=== PATIENT | female | born 1955 | race Caucasian/White ===

== ENCOUNTER 2019-02-12 23:04 | Inpatient (IN) | payer BC ==
[~2019-02-12] VITALS: Ht 172.7 cm; Wt 131.5 kg
--- NOTE | 2019-02-13 01:18 | PHYS DOC ---
Past Medical History Additional Past Medical Histor: UTERINE CA, ARTHRITIS Past Surgical History: Hysterectomy Additional Past Surgical Histo: BLADDER TUCK Alcohol Use: Occasionally Drug Use: None Adult General Chief Complaint Chief Complaint: MECHANICAL FALL HPI HPI Patient is a 63-year-old female who presents after falling onto her left arm. She complains of pain that is an 8 out of 10 in her humerus region. She denies any other injuries. She denies any chest pain or shortness of breath. Patient states that pain is worsened if she tries to move her left arm whatsoever. Review of Systems Review of Systems Constitutional: Denies fever or chills [] Respiratory: Denies cough or shortness of breath [] Cardiovascular: No additional information not addressed in HPI [] Musculoskeletal: Positive left arm pain [] Integument: Denies rash or skin lesions [] All other systems were reviewed and found to be within normal limits, except as documented in this note. Allergies Allergies Allergies Coded Allergies Type Severity Reaction Last Updated Verified No Known Drug Allergies 02/13/19 No Physical Exam Physical Exam Constitutional: Well developed, well nourished, in mild distress. [] HENT: Normocephalic, atraumatic, bilateral external ears normal, oropharynx moist, no oral exudates, nose normal. [] Eyes: PERRLA, EOMI, conjunctiva normal, no discharge. [] Neck: Normal range of motion, no tenderness, supple, no stridor. [] Cardiovascular: Regular rate and rhythm[] Lungs & Thorax: Bilateral breath sounds clear to auscultation [] Abdomen: Bowel sounds normal, soft, no tenderness. [] Skin: Warm, dry, no erythema, no rash. [] Extremities: Examination of left upper arm demonstrates deformity around mid shaft humerus. Unable to test range of motion due to severity of pain. [] Neurologic: Alert and oriented X 3, no focal deficits noted. [] Current Patient Data Vital Signs Vital Signs Date Time Temp Pulse Resp B/P (MAP) Pulse Ox O2 Delivery O2 Flow Rate FiO2 02/12/19 23:50 98.2 81 20 140/78 (98) 98 Room Air 98.2 EKG EKG [] Radiology/Procedures Radiology/Procedures [] Impressions: X-ray of left shoulder and humerus demonstrates a proximal one third shaft fracture with displacement. Course & Med Decision Making Course & Med Decision Making Pertinent Labs and Imaging studies reviewed. (See chart for details) [] Dragon Disclaimer Dragon Disclaimer This electronic medical record was generated, in whole or in part, using a voice recognition dictation system. Departure Departure Impression: Primary Impression: Humerus shaft fracture Disposition: ADMITTED INPATIENT Admitting Physician: Tracey Lunsford Condition: GOOD Problem Qualifiers Primary Impression: Humerus shaft fracture Encounter type: initial encounter Fracture type: closed Fracture morphology : spiral Fracture alignment: displaced Laterality: left Qualified Codes: S42.342A - Displaced spiral fracture of shaft of humerus, left arm, initial encounter for closed fracture XAVIER ROD Jr. DO Feb 13, 2019 01:18
[2019-02-13] MEDS ORDERED: ONDANSETRON PF 4 MG/2 ML VIAL. IV PRN (01:30)
[2019-02-13] MEDS ORDERED: fentaNYL PF VIAL 100 MCG/2 ML VIAL IV ONE (01:30)
[2019-02-13] MEDS ORDERED: ONDANSETRON PF 4 MG/2 ML VIAL. IV ONE (01:30)
[2019-02-13 01:57] LABS: CALCIUM 9.3 mg/dL (8.5-10.1); CREATININE 0.8 mg/dL (0.6-1.0); GFR 72.7; POTASSIUM 3.7 mmol/L (3.5-5.1)
[2019-02-13 02:03] LABS: ALBUMIN 3.8 g/dL (3.4-5.0); TOTAL BILIRUBIN 0.4 mg/dL (0.2-1.0); TOTAL PROTEIN 7.5 g/dL (6.4-8.2)
--- NOTE | 2019-02-13 02:40 | NUR ---
Admission: The patient, JOSELO HAND, 63 y/o, F admitted by JÚNIOR HERNÁNDEZ MD, was given written information regarding hospital policies, unit procedures and contact persons. Patient was transported from ED to room 432 via bed. RN performed a head to toe assessment at that time, VSS, and afebrile, patient rated pain an 8/10. Orders were received and implemented at that time. Valuables were checked and left in the room with the patient. RN will continue to monitor patient closely.
[2019-02-13] MEDS: fentaNYL PF VIAL 100 MCG/2 ML VIAL IV PRN ×6 (02:56→21:33)
[2019-02-13 03:00] VITALS: BP 137/82
[2019-02-13] MEDS: IV NORMAL SALINE 1000ML BAG 1,000 ML IV SCH ×2 (03:37→11:53)
[2019-02-13 03:53] LABS: BASO # 0.1 x10^3/uL (0.0-0.2); BASO % 0 % (0-3); EOS % 0 % (0-3); HEMATOCRIT 41.2 % (36.0-47.0); HEMOGLOBIN 13.4 g/dL (12.0-15.5); LYMPH # 0.9 x10^3/uL (1.0-4.8); LYMPH % 7 % (24-48); MEAN CORPUSCULAR HEMOGLOBIN 29 pg (25-35); MEAN CORPUSCULAR HGB CONC 33 g/dL (31-37); MEAN CORPUSCULAR VOLUME 90 fL (79-100); MONO # 0.4 x10^3/uL (0.0-1.1); MONO % 3 % (0-9); NEUT # 11.9 x10^3uL (1.8-7.7); NEUT % 90 % (31-73); PLATELET COUNT 351 x10^3/uL (140-400); RED BLOOD COUNT 4.59 x10^6/uL (3.50-5.40); RED CELL DISTRIBUTION WIDTH 14.4 % (11.5-14.5); WHITE BLOOD COUNT 13.3 x10^3/uL (4.0-11.0)
[2019-02-13 05:45] LABS: % BANDS 3 % (0-9); % LYMPHS 5 % (24-48); % MONOS 4 % (0-10); % SEGS 88 % (35-66); PLT ESTIMATE ADEQUATE (ADEQUATE)
--- NOTE | 2019-02-13 06:49 | EKG ---
[facility] [address] [place] [address] Test Date: 2019-02-13 Test Time: 02:19:47 Pat Name: JOSELO HAND Department: Room: 432 1 Gender: F Glue Bone [employer]her: : 1955 Requested By: XAVIER ROD Order Number: [id number] Reading MD: Cornel Orta MD Measurements Intervals Lagrange Rate: 79 P: 41 AR: 166 QRS: 43 QRSD: 82 T: 62 QT: 394 QTc: 453 Interpretive Statements SINUS RHYTHM Electronically Signed On 02-17-2019 13:09:57 CDT by Cornel Orta MD
[2019-02-13 07:00] VITALS: BP 113/71
--- NOTE | 2019-02-13 08:32 | RAD ---
EXAM: 3 views left shoulder 2 views left humerus DATE: 02/13/2019 12:11 AM INDICATION: FALL COMPARISON: No Prior FINDINGS: There is a spiral type fracture of the proximal left humeral shaft with associated rotatory component and approximately 1.5 cm proximal migration of the distal principal component, in apex medial angulation. Diffusely decreased bone mineral density. Minimal AC joint degenerative change. IMPRESSION: 1. Spiral type proximal left humeral fracture. Electronically signed by: Temo Pete MD (02/13/2019 8:28 AM) [id number]
--- NOTE | 2019-02-13 08:34 | RAD ---
EXAM: AP View of the chest DATE: 02/13/2019 12:30 AM INDICATION: LEFT HUMERUS PAIN, FALL. PRE-OP COMPARISON: No Prior FINDINGS: Left proximal humeral fracture is partially profiled. Heart is mildly enlarged. Aorta is tortuous. No lobar consolidation. Interstitial prominence bilaterally. No lobar consolidation. Mild biapical pleural/parenchymal scarring/thickening. Mild nodularity with acute margins is seen in the right upper lung measuring 5 mm. No pleural effusion or pneumothorax. IMPRESSION: 1. Proximal left humeral fracture partially profiled. 2. Nodularity in the right upper lung measuring 5 mm, possibly summation artifact should be further assessed with CT. Electronically signed by: Temo Pete MD (02/13/2019 8:31 AM) [id number]
[2019-02-13] MEDS ORDERED: DULO60CA6 PO (09:07)
[2019-02-13] MEDS ORDERED: FURO-69 PO (09:07)
[2019-02-13] MEDS ORDERED: NALT50TA PO (09:08)
[2019-02-13] MEDS ORDERED: CELE200C PO (09:08)
[2019-02-13] MEDS ORDERED: ESZO3TAB28 PO (09:08)
[2019-02-13] MEDS ORDERED: DIET75TA PO (09:08)
[2019-02-13 11:00] VITALS: BP 117/61
[2019-02-13] MEDS ORDERED: DEXTROSE 50% 25 GM / 50ML DISP.SYRIN. IV PRN (11:15)
--- NOTE | 2019-02-13 11:17 | HP ---
ADMIT DATE: 02/13/2019 CHIEF COMPLAINT: Fall with left shoulder pain. HISTORY OF PRESENT ILLNESS: The patient is a pleasant 63-year-old female who tripped over her suitcase. She complains of 8/10 left arm pain. She was brought to the ER for evaluation. Imaging has shown a humerus fracture. She has associated nausea. This has been occurring for several hours. Morphine makes it better. I have discussed the case with the ER physician. We are going to admit the patient and consult Orthopedics. PAST MEDICAL HISTORY: Uterine cancer, arthritis and bladder tuck. ALLERGIES: None. FAMILY HISTORY: Coronary artery disease. SOCIAL HISTORY: She does not drink, smoke or take drugs. She works at [employer] in [place]. MEDICATIONS: Reviewed. She is on Celebrex, Cymbalta, Lunesta and Lasix. REVIEW OF SYSTEMS: GENERAL: No history of weight change, weakness or fevers. SKIN: No bruising, hair changes or rashes. EYES: No blurred, double or loss of vision. NOSE AND THROAT: No history of nosebleeds, hoarseness or sore throat. HEART: No history of palpitations, chest pain or shortness of breath on exertion. LUNGS: Denies cough, hemoptysis, wheezing or shortness of breath. GASTROINTESTINAL: Denies changes in appetite, nausea, vomiting, diarrhea or constipation. GENITOURINARY: No history of frequency, urgency, hesitancy or nocturia. NEUROLOGIC: Denies history of numbness, tingling, tremor or weakness. PSYCHIATRIC: No history of panic, anxiety or depression. ENDOCRINE: No history of heat or cold intolerance, polyuria or polydipsia. EXTREMITIES: Denies muscle weakness, joint pain, pain on walking or stiffness. She complains of arm pain. PHYSICAL EXAMINATION: VITAL SIGNS: Temperature is afebrile, pulse 70, respirations 18 and blood pressure 113/80. GENERAL: She is alert, cooperative, requesting ice. HEART: Normal S1, S2. LUNGS: Clear. ABDOMEN: Soft. EXTREMITIES: No edema. The left arm is swollen and painful to touch. It is in a sling. ENDOCRINE: No thyromegaly. LYMPHATICS: No cervical nodes. HEMATOPOIETIC: No bruising. PSYCHIATRIC: She is depressed. LABORATORY DATA: White count is 13. Electrolytes are normal, other than a slightly bumped anion gap of 15. Glucose is 173. Alkaline phosphatase 133. ASSESSMENT AND PLAN: Fall with left humerus fracture. The patient has been admitted. We are consulting with Orthopedics, p.r.n. morphine, IV fluids, p.r.n. Zofran, full code, DVT prophylaxis, PT and OT. LACHELLE BATEMAN DO DR: SUSAN/tam JOB#: [id number] / [id number]
[2019-02-13] MEDS: INSULIN LISPRO 300 UNITS/3 ML INSULN.PEN. SQ SCH ×2 (11:55→16:28)
--- NOTE | 2019-02-13 12:45 | NUR ---
SS following for discharge planning. SS reviewed pt chart. Pt is from home and is currently on room air. No discharge needs noted at this time. SS will continue to follow for pending discharge needs.
[2019-02-13] MEDS ORDERED: oxyCODONE/APAP 5/325 1 TAB TABLET PO PRN (13:15)
[2019-02-13] MEDS: oxyCODONE/APAP 5/325 1 TAB TABLET PO PRN ×2 (14:22→21:35)
[2019-02-13 15:00] VITALS: BP 135/74
[2019-02-13 19:00] VITALS: BP 131/63
--- NOTE | 2019-02-13 19:32 | PDOC2 ---
CONSULT Date of Consult Date of Consult DATE: 02/13/19 TIME: 19:32 Reason for Consult Reason for Consult: Left humerus fracture Identification/Chief Complaint Chief Complaint Left arm pain Source Source: Chart review, Patient History of Present Illness Reason for Visit: This 63-year-old right-handed woman was staying at [facility] with her family when she tripped. She had immediate arm pain, and some deformity of the arm and was admitted to the hospital. She normally lives in [place] Current Problem List Problem List Problems Medical Problems: (1) Humerus shaft fracture Status: Acute Current Medications Current Medications Current Medications Fentanyl Citrate (Fentanyl 2ml Vial) 50 mcg 1X ONCE IV Last administered on 01:36; Start 02/13/19 at 01:30; Stop 02/13/19 at 01:31; Status DC Ondansetron HCl (Zofran) 4 mg 1X ONCE IV Last administered on 02/13/19 01:35 ; Start 02/13/19 at 01:30; Stop 02/13/19 at 01:31; Status DC Ondansetron HCl (Zofran) 4 mg PRN Q8HRS PRN IV NAUSEA/VOMITING 1ST CHOICE; Start 02/13/19 at 01:30; Stop 02/14/19 at 01:29 Fentanyl Citrate (Fentanyl 2ml Vial) 50 mcg PRN Q1HR PRN IV SEVERE PAIN Last administered on 02/13/19at 19:00; Start 02/13/19 at 01:30; Stop 02/14/19 at 01:29 Sodium Chloride 1,000 ml @ 75 mls/hr [id number] IV Last administered on at 11:53; Start 02/13/19 at 02:00; Stop 02/14/19 at 01:59 Insulin Human Lispro (HumaLOG) 0-5 UNITS TIDWMEALS SQ Last administered on 02/13at 11:55; Start 02/13/19 at 12:00 Dextrose (Dextrose 50%-Water Syringe) 12.5 gm PRN Q15MIN PRN IV SEE COMMENTS; Start 02/13/19 at 11:15 Oxycodone/ Acetaminophen (Percocet 5/325) 1 tab PRN Q4HRS PRN PO MODERATE PAIN ; Start 02/13/19 at 13:15 Oxycodone/ Acetaminophen (Percocet 5/325) 2 tab PRN Q4HRS PRN PO SEVERE PAIN Last administered on 02/13/19at 14:22; Start 02/13/19 at 13:15 Active Scripts Active Reported Diethylpropion Hcl 75 Mg Tablet.er 75 Mg PO DAILY Celebrex (Celecoxib) 200 Mg Capsule 200 Mg PO BID 30 Days Naltrexone Hcl 50 Mg Tablet 50 Mg PO DAILY Lunesta (Eszopiclone) 3 Mg Tablet 3 Mg PO HS PRN Cymbalta (Duloxetine Hcl) 60 Mg Capsule.dr 1 Cap PO DAILY Lasix (Furosemide) 20 Mg Tablet 1 Tab PO DAILY Allergies Allergies: Coded Allergies: No Known Drug Allergies (Unverified , 02/13/19) Physical Exam General: Alert, Cooperative, No acute distress HEENT: Atraumatic Lungs: Normal air movement Heart: Regular rate Abdomen: Soft Extremities: No cyanosis, No edema, Normal pulses, Other (there is tenderness of the proximal humerus on the left as expected, but no obvious deformity. The arm sling and her body are providing support and splinting. She has intact radial ulnar and median nerve sensory and motor function at the fingers. Capillary refill and pulses are normal.) Skin: No breakdown, No significant lesion Neuro: Sensation intact Psych/Mental Status: Mental status NL, Mood NL Vitals VITALS Vital Signs Date Time Temp Pulse Resp B/P (MAP) Pulse Ox O2 Delivery O2 Flow Rate FiO2 02/13/19 19:00 20 96 Room Air 02/13/19 15:00 97.9 90 135/74 (94) 97.9 Labs Labs Laboratory Tests Test 02/13/19 01:30 02/13/19 03:30 02/13/19 11:42 02/13/19 16:26 Sodium Level 139 mmol/L (136-145) Potassium Level 3.7 mmol/L (3.5-5.1) Chloride Level 101 mmol/L (98-107) Carbon Dioxide Level 23 mmol/L (21-32) Anion Gap 15 (6-14) Blood Urea Nitrogen 11 mg/dL (7-20) Creatinine 0.8 mg/dL (0.6-1.0) Estimated GFR (Cockcroft-Gault) 72.7 BUN/Creatinine Ratio 14 (6-20) Glucose Level 173 mg/dL (70-99) Calcium Level 9.3 mg/dL (8.5-10.1) Total Bilirubin 0.4 mg/dL (0.2-1.0) Aspartate Amino Transf (AST/SGOT) 27 U/L (15-37) Alanine Aminotransferase (ALT/SGPT) 33 U/L (14-59) Alkaline Phosphatase 133 U/L (46-116) Total Protein 7.5 g/dL (6.4-8.2) Albumin 3.8 g/dL (3.4-5.0) Albumin/Globulin Ratio 1.0 (1.0-1.7) White Blood Count 13.3 x10^3/uL (4.0-11.0) Red Blood Count 4.59 x10^6/uL (3.50-5.40) Hemoglobin 13.4 g/dL (12.0-15.5) Hematocrit 41.2 % (36.0-47.0) Mean Corpuscular Volume 90 fL (79-100) Mean Corpuscular Hemoglobin 29 pg (25-35) Mean Corpuscular Hemoglobin Concent 33 g/dL (31-37) Red Cell Distribution Width 14.4 % (11.5-14.5) Platelet Count 351 x10^3/uL (140-400) Neutrophils (%) (Auto) 90 % (31-73) Lymphocytes (%) (Auto) 7 % (24-48) Monocytes (%) (Auto) 3 % (0-9) Eosinophils (%) (Auto) 0 % (0-3) Basophils (%) (Auto) 0 % (0-3) Neutrophils # (Auto) 11.9 x10^3uL (1.8-7.7) Lymphocytes # (Auto) 0.9 x10^3/uL (1.0-4.8) Monocytes # (Auto) 0.4 x10^3/uL (0.0-1.1) Eosinophils # (Auto) 0.0 x10^3/uL (0.0-0.7) Basophils # (Auto) 0.1 x10^3/uL (0.0-0.2) Segmented Neutrophils % 88 % (35-66) Band Neutrophils % 3 % (0-9) Lymphocytes % 5 % (24-48) Monocytes % 4 % (0-10) Platelet Estimate Adequate (ADEQUATE) Glucose (Fingerstick) 162 mg/dL (70-99) 126 mg/dL (70-99) Laboratory Tests Test 02/13/19 01:30 02/13/19 03:30 02/13/19 11:42 02/13/19 16:26 Sodium Level 139 mmol/L (136-145) Potassium Level 3.7 mmol/L (3.5-5.1) Chloride Level 101 mmol/L (98-107) Carbon Dioxide Level 23 mmol/L (21-32) Anion Gap 15 (6-14) Blood Urea Nitrogen 11 mg/dL (7-20) Creatinine 0.8 mg/dL (0.6-1.0) Estimated GFR (Cockcroft-Gault) 72.7 BUN/Creatinine Ratio 14 (6-20) Glucose Level 173 mg/dL (70-99) Calcium Level 9.3 mg/dL (8.5-10.1) Total Bilirubin 0.4 mg/dL (0.2-1.0) Aspartate Amino Transf (AST/SGOT) 27 U/L (15-37) Alanine Aminotransferase (ALT/SGPT) 33 U/L (14-59) Alkaline Phosphatase 133 U/L (46-116) Total Protein 7.5 g/dL (6.4-8.2) Albumin 3.8 g/dL (3.4-5.0) Albumin/Globulin Ratio 1.0 (1.0-1.7) White Blood Count 13.3 x10^3/uL (4.0-11.0) Red Blood Count 4.59 x10^6/uL (3.50-5.40) Hemoglobin 13.4 g/dL (12.0-15.5) Hematocrit 41.2 % (36.0-47.0) Mean Corpuscular Volume 90 fL (79-100) Mean Corpuscular Hemoglobin 29 pg (25-35) Mean Corpuscular Hemoglobin Concent 33 g/dL (31-37) Red Cell Distribution Width 14.4 % (11.5-14.5) Platelet Count 351 x10^3/uL (140-400) Neutrophils (%) (Auto) 90 % (31-73) Lymphocytes (%) (Auto) 7 % (24-48) Monocytes (%) (Auto) 3 % (0-9) Eosinophils (%) (Auto) 0 % (0-3) Basophils (%) (Auto) 0 % (0-3) Neutrophils # (Auto) 11.9 x10^3uL (1.8-7.7) Lymphocytes # (Auto) 0.9 x10^3/uL (1.0-4.8) Monocytes # (Auto) 0.4 x10^3/uL (0.0-1.1) Eosinophils # (Auto) 0.0 x10^3/uL (0.0-0.7) Basophils # (Auto) 0.1 x10^3/uL (0.0-0.2) Segmented Neutrophils % 88 % (35-66) Band Neutrophils % 3 % (0-9) Lymphocytes % 5 % (24-48) Monocytes % 4 % (0-10) Platelet Estimate Adequate (ADEQUATE) Glucose (Fingerstick) 162 mg/dL (70-99) 126 mg/dL (70-99) Images Images Report reviewed, images independently reviewed. Spiral fracture of the proximal humeral shaft with moderate translation, and minimal angulation. No intra- articular involvement. [facility] [address] [place] [address] IMAGING REPORT Signed PATIENT: JOSELO HAND ACCOUNT: [id number] : 1955 LOCATION: [address] [place] [address] AGE: 63 SEX: F EXAM STATUS: ADM IN ORD. PHYSICIAN: XAVIER ROD Jr. DO REASON: LEFT HUMERUS PAIN, FALL PROCEDURE: HUMERUS LEFT EXAM: 3 views left shoulder 2 views left humerus DATE: 02/13/2019 12:11 AM INDICATION: FALL COMPARISON: No Prior FINDINGS: There is a spiral type fracture of the proximal left humeral shaft with associated rotatory component and approximately 1.5 cm proximal migration of the distal principal component, in apex medial angulation. Diffusely decreased bone mineral density. Minimal AC joint degenerative change. IMPRESSION: 1. Spiral type proximal left humeral fracture. Electronically signed by: Temo Pete MD (02/13/2019 8:28 AM) [facility] Assessment/Plan Assessment/Plan Closed left isolated spiral fracture of the humeral shaft without neurovascular injury. I recommended nonoperative treatment. Arm sling, ice packs, and a follow -up x-ray in about 2 weeks. She agrees with that plan. She said she will need to follow-up in [place]. We will plan for her discharge tomorrow and I would recommend Percocet for bone pain JAUN RAJAN MD Feb 13, 2019 19:32
[2019-02-13 23:00] VITALS: BP 127/70
[2019-02-14 03:00] VITALS: BP 110/62
[2019-02-14 07:00] VITALS: BP 112/59
[2019-02-14] MEDS: IV NORMAL SALINE 1000ML BAG 1,000 ML IV SCH (07:20)
[2019-02-14] MEDS: INSULIN LISPRO 300 UNITS/3 ML INSULN.PEN. SQ SCH (07:20)
[2019-02-14] MEDS ORDERED: ESOM40CA PO (08:11)
[2019-02-14] MEDS ORDERED: ZOLPIDEM 5 MG TABLET. PO PRN (08:15)
[2019-02-14] MEDS: fentaNYL PF VIAL 100 MCG/2 ML VIAL IV PRN (08:28)
[2019-02-14] MEDS ORDERED: PANTOPRAZOLE 40 MG TABLET.DR. PO SCH (09:00)
[2019-02-14] MEDS ORDERED: CELECOXIB 100 MG CAPSULE. PO SCH (09:00)
[2019-02-14] MEDS ORDERED: FUROSEMIDE 20 MG TABLET PO SCH (09:00)
[2019-02-14] MEDS ORDERED: DULoxetine HCL 30 MG CAPSULE.DR PO SCH (09:00)
--- NOTE | 2019-02-14 10:24 | PDOC ---
PROGRESS NOTES Chief Complaint Chief Complaint Fall Humerus Fx- proximal, L, spiral Reactive Leukocytosis Arthritis CAD History of Present Illness History of Present Illness Pt was seen and examined today She was resting comfortably in chair at bedside, eating breakfast with her grand -daughter in the room She reported feeling well today, pain is well controlled with medication She expressed a desire to be discharged today Has a doctor in [place], will continue to f/u with them Discussed with RN Vitals Vitals Vital Signs Date Time Temp Pulse Resp B/P (MAP) Pulse Ox O2 Delivery O2 Flow Rate FiO2 02/14/19 09:15 Room Air 02/14/19 07:00 97.9 52 16 112/59 (76) 96 97.9 Physical Exam General: Alert, Cooperative, No acute distress Heart: Regular rate Lungs: Clear Abdomen: Normal bowel sounds, Soft Extremities: No cyanosis, No edema, Normal pulses, Other (there is tenderness of the L proximal humerus. She has a sling and wrap on affected arm, cradled comfortably at her side. Capillary refill and pulses are normal.) Skin: No rashes, No breakdown, No significant lesion Labs LABS Laboratory Tests Test 02/13/19 11:42 02/13/19 16:26 02/13/19 20:36 Glucose (Fingerstick) 162 mg/dL (70-99) 126 mg/dL (70-99) 127 mg/dL (70-99) Review of Systems Review of Systems Pt reports mild L arm pain Pt denies CP, SOB, VIVAS, n/v/d Assessment and Plan Assessmemt and Plan Problems Medical Problems: (1) Humerus shaft fracture Status: Acute Assessment Fall Humerus Fx- proximal, L, spiral Reactive Leukocytosis Arthritis CAD Plan Will D/C home today, non-operative fracture per ortho Sent with Rx for pain- Percocet PT/OT Will follow up closely with home doctors Repeat x-ray in 2 weeks Home meds today Appreciate subspecialty recs Comment Review of Relevant I have reviewed the following items kathy (where applicable) has been applied. Labs Laboratory Tests Test 02/13/19 01:30 02/13/19 03:30 02/13/19 11:42 02/13/19 16:26 Sodium Level 139 mmol/L (136-145) Potassium Level 3.7 mmol/L (3.5-5.1) Chloride Level 101 mmol/L (98-107) Carbon Dioxide Level 23 mmol/L (21-32) Anion Gap 15 (6-14) Blood Urea Nitrogen 11 mg/dL (7-20) Creatinine 0.8 mg/dL (0.6-1.0) Estimated GFR (Cockcroft-Gault) 72.7 BUN/Creatinine Ratio 14 (6-20) Glucose Level 173 mg/dL (70-99) Calcium Level 9.3 mg/dL (8.5-10.1) Total Bilirubin 0.4 mg/dL (0.2-1.0) Aspartate Amino Transf (AST/SGOT) 27 U/L (15-37) Alanine Aminotransferase (ALT/SGPT) 33 U/L (14-59) Alkaline Phosphatase 133 U/L (46-116) Total Protein 7.5 g/dL (6.4-8.2) Albumin 3.8 g/dL (3.4-5.0) Albumin/Globulin Ratio 1.0 (1.0-1.7) White Blood Count 13.3 x10^3/uL (4.0-11.0) Red Blood Count 4.59 x10^6/uL (3.50-5.40) Hemoglobin 13.4 g/dL (12.0-15.5) Hematocrit 41.2 % (36.0-47.0) Mean Corpuscular Volume 90 fL (79-100) Mean Corpuscular Hemoglobin 29 pg (25-35) Mean Corpuscular Hemoglobin Concent 33 g/dL (31-37) Red Cell Distribution Width 14.4 % (11.5-14.5) Platelet Count 351 x10^3/uL (140-400) Neutrophils (%) (Auto) 90 % (31-73) Lymphocytes (%) (Auto) 7 % (24-48) Monocytes (%) (Auto) 3 % (0-9) Eosinophils (%) (Auto) 0 % (0-3) Basophils (%) (Auto) 0 % (0-3) Neutrophils # (Auto) 11.9 x10^3uL (1.8-7.7) Lymphocytes # (Auto) 0.9 x10^3/uL (1.0-4.8) Monocytes # (Auto) 0.4 x10^3/uL (0.0-1.1) Eosinophils # (Auto) 0.0 x10^3/uL (0.0-0.7) Basophils # (Auto) 0.1 x10^3/uL (0.0-0.2) Segmented Neutrophils % 88 % (35-66) Band Neutrophils % 3 % (0-9) Lymphocytes % 5 % (24-48) Monocytes % 4 % (0-10) Platelet Estimate Adequate (ADEQUATE) Glucose (Fingerstick) 162 mg/dL (70-99) 126 mg/dL (70-99) Test 02/13/19 20:36 Glucose (Fingerstick) 127 mg/dL (70-99) Laboratory Tests Test 02/13/19 11:42 02/13/19 16:26 02/13/19 20:36 Glucose (Fingerstick) 162 mg/dL (70-99) 126 mg/dL (70-99) 127 mg/dL (70-99) Medications Current Medications Fentanyl Citrate (Fentanyl 2ml Vial) 50 mcg 1X ONCE IV Last administered on 01:36; Start 02/13/19 at 01:30; Stop 02/13/19 at 01:31; Status DC Ondansetron HCl (Zofran) 4 mg 1X ONCE IV Last administered on 02/13/19 01:35 ; Start 02/13/19 at 01:30; Stop 02/13/19 at 01:31; Status DC Ondansetron HCl (Zofran) 4 mg PRN Q8HRS PRN IV NAUSEA/VOMITING 1ST CHOICE; Start 02/13/19 at 01:30; Stop 02/15/19 at 01:28 Fentanyl Citrate (Fentanyl 2ml Vial) 50 mcg PRN Q1HR PRN IV SEVERE PAIN Last administered on 02/14/19 08:28; Start 02/13/19 at 01:30; Stop 02/15/19 at 01:28 Sodium Chloride 1,000 ml @ 75 mls/hr [id number] IV Last administered on 11:53; Start 02/13/19 at 02:00; Stop 02/14/19 at 01:59; Status DC Insulin Human Lispro (HumaLOG) 0-5 UNITS TIDWMEALS SQ Last administered on 02/13at 11:55; Start 02/13/19 at 12:00 Dextrose (Dextrose 50%-Water Syringe) 12.5 gm PRN Q15MIN PRN IV SEE COMMENTS; Start 02/13/19 at 11:15 Oxycodone/ Acetaminophen (Percocet 5/325) 1 tab PRN Q4HRS PRN PO MODERATE PAIN ; Start 02/13/19 at 13:15 Oxycodone/ Acetaminophen (Percocet 5/325) 2 tab PRN Q4HRS PRN PO SEVERE PAIN Last administered on 02/13/19at 21:35; Start 02/13/19 at 13:15 Furosemide (Lasix) 20 mg DAILY PO Last administered on 02/14/19at 08:40; Start 02/14/19 at 09:00 Celecoxib (CeleBREX) 200 mg BID PO Last administered on 02/14/19at 08:40; Start 02/14/19 at 09:00 Duloxetine HCl (Cymbalta) 60 mg DAILY PO Last administered on 02/14/19at 08:40; Start 02/14/19 at 09:00 Zolpidem Tartrate (Ambien) 5 mg PRN QHS PRN PO INSOMNIA; Start 02/14/19 at 08: 15 Pantoprazole Sodium (Protonix) 40 mg DAILYAC PO Last administered on 02/14/19at 08:40; Start 02/14/19 at 09:00 Active Scripts Active Reported Nexium Capsule (Esomeprazole Magnesium) 40 Mg Capsule.dr 1 Cap PO DAILY Celebrex (Celecoxib) 200 Mg Capsule 200 Mg PO BID 30 Days Lunesta (Eszopiclone) 3 Mg Tablet 3 Mg PO HS PRN Cymbalta (Duloxetine Hcl) 60 Mg Capsule.dr 1 Cap PO DAILY Lasix (Furosemide) 20 Mg Tablet 1 Tab PO DAILY Vitals/I & O Vital Sign - Last 24 Hours 02/13/19 02/13/19 02/13/19 02/13/19 11:00 12:11 14:22 15:00 Temp 98.3 97.9 98.3 97.9 Pulse 94 90 Resp 16 16 B/P (MAP) 117/61 (79) 135/74 (94) Pulse Ox 95 96 O2 Delivery Room Air Room Air Room Air Room Air 02/13/19 02/13/19 02/13/19 02/13/19 19:00 19:00 20:00 21:33 Temp 98.1 98.1 Pulse 48 Resp 16 20 20 B/P (MAP) 131/63 (85) Pulse Ox 96 96 96 O2 Delivery Room Air Room Air Room Air Room Air 02/13/19 02/13/19 02/13/19 02/13/19 21:35 22:03 22:38 23:00 Temp 97.9 97.9 Pulse 89 Resp 20 20 20 16 B/P (MAP) 127/70 (89) Pulse Ox 96 96 96 93 O2 Delivery Room Air Room Air Room Air 02/14/19 02/14/19 02/14/19 02/14/19 03:00 07:00 08:28 09:15 Temp 97.8 97.9 97.8 97.9 Pulse 84 52 Resp 16 16 B/P (MAP) 110/62 (78) 112/59 (76) Pulse Ox 94 96 O2 Delivery Room Air Room Air Room Air Room Air Intake and Output 02/13/19 02/13/19 02/14/19 14:59 22:59 06:59 Intake Total 0 ml 210 ml 320 ml Balance 0 ml 210 ml 320 ml LACHELLE BATEMAN III DO Feb 14, 2019 10:24
--- NOTE | 2019-02-14 10:32 | PDOC ---
ORTHO PROGRESS NOTES Subjective Patient sitting up in chair at bedside after getting up to restroom. Procedure Fall with closed left spiral fracture of the humeral shaft without neurovascular injury. Vitals Vital Signs Date Time Temp Pulse Resp B/P (MAP) Pulse Ox O2 Delivery O2 Flow Rate FiO2 02/14/19 09:15 Room Air 02/14/19 07:00 97.9 52 16 112/59 (76) 96 97.9 Labs Laboratory Tests Test 02/13/19 01:30 02/13/19 03:30 02/13/19 11:42 02/13/19 16:26 Sodium Level 139 mmol/L (136-145) Potassium Level 3.7 mmol/L (3.5-5.1) Chloride Level 101 mmol/L (98-107) Carbon Dioxide Level 23 mmol/L (21-32) Anion Gap 15 (6-14) Blood Urea Nitrogen 11 mg/dL (7-20) Creatinine 0.8 mg/dL (0.6-1.0) Estimated GFR (Cockcroft-Gault) 72.7 BUN/Creatinine Ratio 14 (6-20) Glucose Level 173 mg/dL (70-99) Calcium Level 9.3 mg/dL (8.5-10.1) Total Bilirubin 0.4 mg/dL (0.2-1.0) Aspartate Amino Transf (AST/SGOT) 27 U/L (15-37) Alanine Aminotransferase (ALT/SGPT) 33 U/L (14-59) Alkaline Phosphatase 133 U/L (46-116) Total Protein 7.5 g/dL (6.4-8.2) Albumin 3.8 g/dL (3.4-5.0) Albumin/Globulin Ratio 1.0 (1.0-1.7) White Blood Count 13.3 x10^3/uL (4.0-11.0) Red Blood Count 4.59 x10^6/uL (3.50-5.40) Hemoglobin 13.4 g/dL (12.0-15.5) Hematocrit 41.2 % (36.0-47.0) Mean Corpuscular Volume 90 fL (79-100) Mean Corpuscular Hemoglobin 29 pg (25-35) Mean Corpuscular Hemoglobin Concent 33 g/dL (31-37) Red Cell Distribution Width 14.4 % (11.5-14.5) Platelet Count 351 x10^3/uL (140-400) Neutrophils (%) (Auto) 90 % (31-73) Lymphocytes (%) (Auto) 7 % (24-48) Monocytes (%) (Auto) 3 % (0-9) Eosinophils (%) (Auto) 0 % (0-3) Basophils (%) (Auto) 0 % (0-3) Neutrophils # (Auto) 11.9 x10^3uL (1.8-7.7) Lymphocytes # (Auto) 0.9 x10^3/uL (1.0-4.8) Monocytes # (Auto) 0.4 x10^3/uL (0.0-1.1) Eosinophils # (Auto) 0.0 x10^3/uL (0.0-0.7) Basophils # (Auto) 0.1 x10^3/uL (0.0-0.2) Segmented Neutrophils % 88 % (35-66) Band Neutrophils % 3 % (0-9) Lymphocytes % 5 % (24-48) Monocytes % 4 % (0-10) Platelet Estimate Adequate (ADEQUATE) Glucose (Fingerstick) 162 mg/dL (70-99) 126 mg/dL (70-99) Test 02/13/19 20:36 Glucose (Fingerstick) 127 mg/dL (70-99) Laboratory Tests Test 02/13/19 11:42 02/13/19 16:26 02/13/19 20:36 Glucose (Fingerstick) 162 mg/dL (70-99) 126 mg/dL (70-99) 127 mg/dL (70-99) Notes Patient to seek referral from PCP for orthopedic care of humerus fracture. Assessment and Plan Patient with fall and fracture of the left humerus Patient wanting to go home to [place] for treatment. Per Dr. Fish nonoperative treatment of fracture with sling for comfort. OK to d/c per ortho standpoint SKIP GILL APRN Feb 14, 2019 10:32
[2019-02-14 11:00] VITALS: BP 125/65
--- NOTE | 2019-02-14 11:23 | NUR ---
SW following. Discussed with RN, pt is discharging home to [place] today. No SW needs.
[2019-02-14] MEDS: oxyCODONE/APAP 5/325 1 TAB TABLET PO PRN (12:45)
--- NOTE | 2019-02-14 13:40 | NUR ---
Pt discharged home with no additional services, ambulated to hospital entrance accompanied by daughter and other family members. Discharge education and information regarding Dx provided to Pt who verbalized understanding and had no further questions. No changes from previous assessment.
--- NOTE | 2019-02-14 15:03 | DS ---
DATE OF DISCHARGE: 02/14/2019 ADMISSION DIAGNOSES: Fall with left humerus fracture. DISCHARGE DIAGNOSIS: Left humerus fracture. CONSULTS: Orthopedics. PROCEDURES: None. HOSPITAL COURSE: The patient is a pleasant middle-aged female who fell at the [place]. She apparently tripped over a suitcase. She suffered a fracture of the left humerus. She was admitted. I thought she was going to have surgery, but we did consult Orthopedics. No surgical intervention was required. She looks great. This morning, her heart tones were normal. Her lungs were clear. We plan to discharge. DISPOSITION: Home. ACTIVITY: As tolerated. DIET: Low sodium. MEDICATIONS: Please see the MRAD. TOTAL TIME: 33 minutes. LACHELLE BATEMAN DO DR: SUSAN/tam JOB#: [id number] / [id number]
== END 2019-02-14 13:40 | disposition home or self-care (01) | DRG 563 ==
LOC: ER 23:04 → 4 NORTH 02-13 01:16
PROVIDERS: ADMIT Internal Medicine; ATTEND Internal Medicine
DX: S42.342A Displaced spiral fracture of shaft of humerus, left arm, initial encounter for closed fracture (principal); M19.90 Unspecified osteoarthritis, unspecified site; W18.39XA Other fall on same level, initial encounter; D72.828 Other elevated white blood cell count; I25.10 Atherosclerotic heart disease of native coronary artery without angina pectoris; Z82.49 Family history of ischemic heart disease and other diseases of the circulatory system; Z85.42 Personal history of malignant neoplasm of other parts of uterus; Y93.89 Activity, other specified; Y92.89 Other specified places as the place of occurrence of the external cause; Y99.8 Other external cause status; Z90.710 Acquired absence of both cervix and uterus
CPT/HCPCS: 36415; 71045; 73030; 73060; 80053; 82962; 85007; 85025; 93005; J1815; J2405; J3010; J7030